=== PATIENT | female | born 1965 | race Caucasian/White ===

== ENCOUNTER 2018-01-17 10:02 | Observation (INO) ==
[2018-01-17] MEDS ORDERED: 0.9 % Sodium Chloride 500 ML IVC ONE (10:21)
[2018-01-17] MEDS ORDERED: Benzonatate 100 MG CAPSULE PO STA (10:21)
--- NOTE | 2018-01-17 10:21 | Emergency Department Note ---
Disposition Clinical Impression: Pneumonia Qualifiers: Pneumonia type: due to unspecified organism Laterality: left Lung location: lower lobe of lung Qualified Code(s): J18.1 - Lobar pneumonia, unspecified organism Disposition: Admitted As Inpatient Condition: Fair Time of Disposition: 11:28 (Dr Love) SOB HPI - General Chief Complaint: ED Upper Respiratory Infection Stated Complaint: COUGH, SORENESS LT RIBS, HEADACHE Time Seen by Provider: 01/17/18 10:04 Source: patient Mode of arrival: ambulatory Limitations: no limitations Nursing Notes Reviewed: Yes Vital Signs Reviewed: Yes - History of Present Illness Pt Subjective Complaint: cough, pain with inspiration Onset (ago): day(s) (4) Context: other (new onset associated fever, productive cough and rib pain.) Severity: moderate Consistency/Duration: intermittent Improves with: nothing Worsens with: coughing, inspiration Associated symptoms: Reports: pain with inspiration, fever (102 at home), sputum production. Denies: chest pain, lower extremity pain, polyuria, polydipsia, parasthesias, palpitations, hemoptysis, diaphoresis, nausea/vomiting , syncope, abdominal pain, rash, sense of impending doom Treatment prior to arrival: other (Took Tylenol yesterday evening) Cough Description: Involuntary Cough Frequency: Intermittent Sputum production: Yes Sputum Amount: Small Sputum Color: White, Yellow - Related Data Home Medications Medication Instructions Recorded Confirmed Omeprazole [PriLOSEC] 20 mg PO QPM 07/18/15 01/17/18 Allergies Allergy/AdvReac Type Severity Reaction Status Date / Time No Known Allergies Allergy Verified 07/18/15 06:54 All systems ED: reviewed and negative except as stated. Past Medical History - Past Medical History Medical history: Reports: GERD Psychiatric history: Reports: anxiety, depression - Social History Smoking Status: Current every day smoker Smokeless Tobacco Status: No Alcohol use: Reports: none Drug use: Reports: none Physical Exam - General Limitations: no limitations General appearance: alert, in distress - Head Head exam: atraumatic, normocephalic, normal inspection - Eye Eye exam: Present: normal appearance, PERRL, EOMI - ENT ENT exam: normal exam, normal oropharynx, mucous membranes dry, TM's normal bilaterally - Neck Neck exam: Present: normal inspection, full ROM, trachea midline, lymphadenopathy. Absent: thyromegaly - Chest Chest inspection: Present: normal inspection, symmetric chest wall rise - Respiratory Respiratory exam: Present: normal lung sounds bilaterally - Cardiovascular Cardiovascular exam: Present: normal rhythm, tachycardia, normal heart sounds. Absent: JVD - Abdominal Exam Abdominal exam: Present: soft, Non-Tender. Absent: tenderness, distention, guarding, rebound, rigidity - Extremities Exam Extremities exam: Present: normal inspection, full ROM. Absent: tenderness, pedal edema - Back Exam Back exam: Present: normal inspection, full ROM. Absent: tenderness - Skin Skin exam: Present: warm, dry, intact, normal color. Absent: cyanosis Course - Reevaluation(s) Reevaluation #1: Heart rate 82, blood pressure 159/119, respiratory rate of 37. SPO2 94. Normal saline 250 ml given Time: 11:32 Vital Signs Temperature 99.6 F 01/17/18 10:05 Pulse Rate 111 01/17/18 10:05 Respiratory Rate 18 01/17/18 10:05 Blood Pressure 107/74 01/17/18 10:05 O2 Sat by Pulse Oximetry 91 01/17/18 10:05 Temperature 98.1 F 01/17/18 11:13 Pulse Rate 76 01/17/18 12:28 Respiratory Rate 16 01/17/18 12:28 Blood Pressure 103/66 01/17/18 12:28 O2 Sat by Pulse Oximetry 97 01/17/18 12:28 Oxygen Delivery Oxygen Delivery Room Air Shortness of Breath/Dyspnea - [facility] Narrative Medical decision making narrative: Nontoxic appearing patient, positive for left lower lobe pneumonia. Start on Rocephin and azithromycin. Will be admitted secondary pneumonia and sepsis. Scuffs with hospitalist and will admit the patient for further treatment and stabilization. - Differential Diagnosis Likely: acute exacerbation of chronic obstructive airways disease, congestive heart failure, pneumonia - Medical Records Medical records reviewed: Yes I reviewed the patient's medical records. - Lab Data Result diagrams: 01/17/18 10:40 01/17/18 10:40 Lab Results 01/17/18 01/17/18 01/17/18 Range/Units 10:40 10:40 11:46 WBC 21.6 H (4.3-11.1) K/mcL RBC 4.02 (3.82-4.97) M/mcL Hgb 13.1 (11.5-15.4) g/dL Hct 37.2 (35.3-44.9) % MCV 92.5 (83.0-100.0) fL MCH 32.6 (28.0-33.3) pg MCHC 35.2 (31.6-35.5) g/dL RDW 12.9 (11.5-14.5) % Plt Count 198 (140-400) K/mcL MPV 10.1 (9.4-12.4) fL Immature Gran % 0.6 (0-4) % Seg Neutrophils % 88.9 % Lymphocytes % 3.8 % Monocytes % 6.4 % Eosinophils % 0.0 % Basophils % 0.3 % Neutrophils # 19.2 H (1.6-8.9) K/mcL Lymphocytes # 0.8 (0.6-4.6) K/mcL Monocytes # 1.4 H (0.0-1.3) K/mcL Eosinophils # 0.0 (0.0-0.6) K/mcL Basophils # 0.1 (0.0-0.2) K/mcL Sodium 130 L (136-145) mEq/L Potassium 3.5 (3.5-5.1) mEq/L Chloride 96 L (98-107) mEq/L Carbon Dioxide 24 (23-29) mEq/L BUN 10 (6-20) mg/dL Creatinine 0.71 (0.60-1.20) mg/dL Est GFR ( Amer) > 60 (> 60) Est GFR (Non-Af Amer) > 60 (> 60) BUN/Creatinine Ratio 14 (6-26) Glucose 151 H (70-105) mg/dL Calculated Osmolality 272 L (280-300) Lactic Acid 1.3 (0.5-2.2) mmol/L Calcium 9.8 (8.6-10.3) mg/dL Critical Care Time Critical Care Time: Yes Total Critical Care Time: 30 Attestation: Critical care performed: Time is exclusive of separately billable procedures. Time includes: direct patient care, patient reassessment, coordination of patient care, interpretation of data (laboratory data, radiology data, and respiratory data), review of patient's medical records, medical consultation and documentation of patient care. Procedures included in critical care time: Procedures excluded from critical care time:
[2018-01-17] MEDS ORDERED: Ketorolac 30 MG/ML VIAL IVP ONE (10:24)
[2018-01-17 10:48] LABS: Basophils # 0.1 K/mcL (0.0-0.2); Basophils % 0.3 %; Hematocrit 37.2 % (35.3-44.9); Hemoglobin 13.1 g/dL (11.5-15.4); Immature Granulocytes % 0.6 % (0-4); Lymphocytes # 0.8 K/mcL (0.6-4.6); Lymphocytes % 3.8 %; Mean Corpuscular HGB Conc 35.2 g/dL (31.6-35.5); Mean Corpuscular Hemoglobin 32.6 pg (28.0-33.3); Mean Corpuscular Volume 92.5 fL (83.0-100.0); Mean Platelet Volume 10.1 fL (9.4-12.4); Monocytes # 1.4 K/mcL (0.0-1.3); Monocytes % 6.4 %; Neutrophils # 19.2 K/mcL (1.6-8.9); Platelet Count 198 K/mcL (140-400); Red Blood Count 4.02 M/mcL (3.82-4.97); Red Cell Distribution Width 12.9 % (11.5-14.5); Segmented Neutrophils % 88.9 %
[2018-01-17] MEDS ORDERED: Azithromycin 500 MG in D5% in Water 250 ML IVPB ONE (10:56)
[2018-01-17] MEDS ORDERED: 0.9 % Sodium Chloride 1,000 ML IVC ONE (10:57)
[2018-01-17 11:01] LABS: BUN/Creatinine Ratio 14 (6-26); Blood Urea Nitrogen 10 mg/dL (6-20); Calcium 9.8 mg/dL (8.6-10.3); Carbon Dioxide 24 mEq/L (23-29); Chloride 96 mEq/L (98-107); Glucose 151 mg/dL (70-105); Osmolality,Calculated 272 (280-300); Potassium 3.5 mEq/L (3.5-5.1); Sodium 130 mEq/L (136-145); eGFR For African Americans > 60 (> 60); eGFR For Non-African Americans > 60 (> 60)
[2018-01-17] MEDS ORDERED: cefTRIAXone 1,000 MG in Water for inj. (sterile) 10 ML IVPB ONE (11:30)
[2018-01-17] MEDS ORDERED: *HR* HYDROcodone/Acet 5/325 mg TABLET PO PRN (13:15)
[2018-01-17] MEDS ORDERED: Acetaminophen 325 MG TABLET PO PRN (13:15)
[2018-01-17] MEDS ORDERED: Ondansetron 4 MG/2 ML VIAL IVP PRN (13:15)
[2018-01-17] MEDS ORDERED: *HR* OxyCODONE Immed Rel 5 MG TABLET PO PRN (13:15)
[2018-01-17] MEDS ORDERED: Naloxone 0.4 MG/ML INJ IVP PRN (13:15)
[2018-01-17] MEDS ORDERED: Ondansetron ODT 4 MG TAB.RAPDIS SL PRN (13:15)
--- NOTE | 2018-01-17 19:27 | Internal Med History&Physical ---
Date of Encounter: 01/17/18 Time of Encounter: 19:10 Assessment and Plan (1) Pneumonia Current visit: Yes Status: Acute She was given Rocephin and Zithromax in emergency room. These will be continued with lactobacillus. Further workup will be done as needed. Room air oximetry will be checked prior to discharge. Qualifiers: Pneumonia type: due to unspecified organism Laterality: left Lung location: lower lobe of lung Qualified Code(s): J18.1 - Lobar pneumonia, unspecified organism Internal Medicine - H&P: HPI Chief complaint: Fever, cough, dyspnea Admitted From: Emergency Dept Plans for Post Hospital Care: Home History of present illness: Ms. Skylar Lu is a 52 year old female who came to emergency room stating she had onset of cough, left pleuritic chest pain, nausea, and fever on January 14. She had 2 episodes of vomiting on January 15. When she did not improve she came to emergency room today and was evaluated and found to have left lower lobe pneumonia. She was admitted to [facility] floor for ongoing care needs. She denies previous episodes of pneumonia. Her respiratory history is significant for having smoked since age 15 up to 2 packs per day. She has not had PFTs and does not use home oxygen and has not been diagnosed with chronic lung disease. Past Med Surg Social Fam HX - Past Medical History Medical history: GERD Psychiatric history: anxiety, depression - Past Surgical History Surgical History: appendectomy, cholecystectomy, hysterectomy - Social History Smoking Status: Current every day smoker Packs per day: 1 Smokeless Tobacco Status: No Alcohol use: none Drug use: none - Family History Mother Living Status: Still Living Hx Family Endocrine Disorder: Yes Internal Medicine - H&P: Meds Omeprazole [PriLOSEC] 20 mg PO QPM 07/18/15 [History] 3 Allergy/AdvReac Type Severity Reaction Status Date / Time No Known Allergies Allergy Verified 07/18/15 06:54 All Systems PM: A 10-system review of systems was performed and is negative for pertinent findings except as documented above in the HPI. Review of systems: Gen.: She states her weight is stable the past few months Cardiovascular: She denies [place] hypertension heart failure angina DVT or pulmonary embolus Respiratory: As per history of present illness GI: She has GERD. She denies disorders of her liver or exocrine pancreas. She has had cholecystectomy : She denies hematuria dysuria or kidney stones Neurologic: She denies large distribution strokes or seizures. Endocrine: She denies diabetes thyroid disease or hyperlipidemia Hematology/oncology: She denies blood disorders cancers or anemia Psychiatric: She has anxiety and depression but quit taking medication for this. She denies other mental health issues. [place] skeletal: She has DJD and had C3-4 cervical spine fusion surgery several years ago. - Constitutional Vitals: Temp Pulse Resp BP Pulse Ox 98.3 F 73 16 97/65 95 01/17/18 16:27 01/17/18 16:27 01/17/18 16:27 01/17/18 16:27 01/17/18 16:27 Exam: Gen.: She is a well-developed well-nourished female resting quietly in bed who appears in no acute distress HEENT: Head is atraumatic and normocephalic. Eyes: EOMI. There is no scleral icterus. Mouth: Mucosa is moist. Neck: Supple and nontender. There is no thyromegaly or adenopathy noted. Heart: Regular without murmurs gallops or ectopics Lungs: No wheezes or crackles are heard. Abdomen: Soft and nontender. No masses or guarding are noted. Extremities: There is no cyanosis edema or clubbing noted. Dorsalis pedis and posttibial pulses are 1-2 over 2 bilaterally. Neurologic: Mental status: She is talkative and a good historian. Cranial nerves: Smile is symmetric. Forehead wrinkles bilaterally. Tongue protrudes midline. EOMI. Motor: There is no pronator drift. Cerebellar: Finger to nose is intact bilaterally. Skin: Warm and dry Internal Med - H&P Results - Labs CBC & Chem 7: 01/17/18 10:40 01/17/18 10:40
[2018-01-17] MEDS: Lactobacillus 1 EACH CAP.SPRINK PO SCH (21:51)
[2018-01-18 05:00] LABS: Enterococcus by PCR Not Detected (Not Detect); Staphylococcus aureus by PCR Not Detected (Not Detect); blaKPC Carbapenem-Resist Gene Not Detected (Not Detect); mecA Methicillin-Resist Gene Not Detected (Not Detect); vanA/B Vancomycin-Resist Genes Not Detected (Not Detect)
[2018-01-18 05:01] LABS: Acinetobacter baumannii by PCR Not Detected (Not Detect); Candida albicans by PCR Not Detected (Not Detect); Candida glabrata by PCR Not Detected (Not Detect); Candida krusei by PCR Not Detected (Not Detect); Candida parapsilosis by PCR Not Detected (Not Detect); Candida tropicalis by PCR Not Detected (Not Detect); Escherichia coli by PCR Not Detected (Not Detect); Klebsiella oxytoca by PCR Not Detected (Not Detect); Klebsiella pneumoniae by PCR Not Detected (Not Detect); Pseudomonas aeruginosa by PCR Not Detected (Not Detect); Serratia marcescens by PCR Not Detected (Not Detect); Streptococcus agalactiae(B)PCR Not Detected (Not Detect); Streptococcus by PCR ***DETECTED*** (Not Detect); Streptococcus pneumoniae PCR ***DETECTED*** (Not Detect); Streptococcus pyogenes (A) PCR Not Detected (Not Detect)
[2018-01-18 07:11] LABS: Basophils # 0.1 K/mcL (0.0-0.2); Basophils % 0.4 %; Eosinophils # 0.1 K/mcL (0.0-0.6); Eosinophils % 0.7 %; Hematocrit 34.6 % (35.3-44.9); Hemoglobin 11.6 g/dL (11.5-15.4); Immature Granulocytes % 0.6 % (0-4); Lymphocytes # 1.4 K/mcL (0.6-4.6); Lymphocytes % 9.8 %; Mean Corpuscular HGB Conc 33.5 g/dL (31.6-35.5); Mean Corpuscular Hemoglobin 31.8 pg (28.0-33.3); Mean Corpuscular Volume 94.8 fL (83.0-100.0); Mean Platelet Volume 10.6 fL (9.4-12.4); Monocytes # 0.9 K/mcL (0.0-1.3); Monocytes % 6.5 %; Neutrophils # 11.3 K/mcL (1.6-8.9); Platelet Count 193 K/mcL (140-400); Red Blood Count 3.65 M/mcL (3.82-4.97); Red Cell Distribution Width 13.1 % (11.5-14.5)
[2018-01-18 07:32] LABS: BUN/Creatinine Ratio 24 (6-26); Blood Urea Nitrogen 17 mg/dL (6-20); Calcium 9.3 mg/dL (8.6-10.3); Carbon Dioxide 24 mEq/L (23-29); Chloride 103 mEq/L (98-107); Glucose 91 mg/dL (70-105); Magnesium 2.1 mg/dL (1.6-2.6); Osmolality,Calculated 283 (280-300); Potassium 3.2 mEq/L (3.5-5.1); Sodium 136 mEq/L (136-145); eGFR For African Americans > 60 (> 60); eGFR For Non-African Americans > 60 (> 60)
[2018-01-18 08:15] VITALS: BP 117/83
[2018-01-18] MEDS: Lactobacillus 1 EACH CAP.SPRINK PO SCH (08:56)
[2018-01-18] MEDS ORDERED: cefTRIAXone 1,000 MG in Water for inj. (sterile) 20 ML 10 ML IVP SCH (09:00)
[2018-01-18] MEDS ORDERED: Azithromycin 500 MG in D5% in Water 250 ML IVPB SCH (09:00)
--- NOTE | 2018-01-18 09:57 | Discharge Summary ---
Date of Encounter: 01/18/18 Time of Encounter: 09:45 - Discharge Diagnosis (1) Pneumonia Priority: Primary Status: Acute Qualifiers: Pneumonia type: due to unspecified organism Laterality: left Lung location: lower lobe of lung Qualified Code(s): J18.1 - Lobar pneumonia, unspecified organism Hospital course: Ms. Skylar Lu is a 52 year old female who came to emergency room stating she had onset of cough, left pleuritic chest pain, nausea, and fever on January 14. She had 2 episodes of vomiting on January 15. When she did not improve she came to emergency room today and was evaluated and found to have left lower lobe pneumonia. She was admitted to [facility] for ongoing care needs. Initial orders were written by the emergency room physician. I saw her on January 17 and performed a history and physical. She was started on Rocephin and Zithromax with lactobacillus. Streptococcus pneumoniae was detected on serology and blood cultures. She had good clinical response to treatment with the WBC decreasing to 13.8 and lessening of the left shift on follow-up labs January 18. She felt significantly improved when I saw her and wished to be discharged home which I felt was reasonable. She will continue with antibiotic and probiotic for 3 additional days at discharge. I encouraged her become a nonsmoker. She will follow with her PCP Zoë Jenkins CNP within 1 week. - Time Spent with Patient Total time spent providing and/or coordinating discharge services: - Discharge Medications Prescriptions: Cefuroxime PO [Ceftin] 500 mg PO Q12HR #6 tablet Azithromycin [Zithromax] 250 mg PO DAILY #3 tablet Lactobacillus [Culturelle] 1 each PO BID #6 cap.[email or web address] Home Medications: Omeprazole [PriLOSEC] 20 mg PO QPM 07/18/15 [History] Azithromycin [Zithromax] 250 mg PO DAILY #3 tablet 01/18/18 [Rx] Cefuroxime PO [Ceftin] 500 mg PO Q12HR #6 tablet 01/18/18 [Rx] Lactobacillus [Culturelle] 1 each PO BID #6 cap.[email or web address] 01/18/18 [Rx] Allergies/Adverse Reactions: 3 Allergy/AdvReac Type Severity Reaction Status Date / Time No Known Allergies Allergy Verified 07/18/15 06:54 Date of admission: 01/17/18 11:58 Primary care physician: Zoë Jenkins CNP - Constitutional Vitals: Temp Pulse Resp BP Pulse Ox 97.9 F 68 19 117/83 93 01/18/18 06:45 01/18/18 06:45 01/18/18 06:45 01/18/18 06:45 01/18/18 08:15 - Patient Status Disposition: Home, Self-Care Condition: Fair Functional capacity at discharge: independent ambulation Overall status at discharge: patient is progressing back to baseline - Discharge Instructions Follow Up With: Zoë Jenkins CNP [Primary Care Provider] - 1 week - Diet and Activity Activity: resume usual activities as tolerated
== END 2018-01-18 11:30 | disposition home or self-care (01) ==
LOC: INPPIK 10:02 → EMEROOPIK 10:02 → INPPIK 12:31
PROVIDERS: ADMIT Internal Medicine; ATTEND Internal Medicine